=== PATIENT | female | born 1945 | race Caucasian/White ===

== ENCOUNTER 2021-03-19 14:55 | Emergency (ER) | payer MEDICARE ==
[~2021-03-19] VITALS: Ht 154.9 cm; Wt 81.0 kg
[2021-03-19] MEDS ORDERED: ONDANSETRON PF 4 MG/2 ML VIAL. IVP ONE (15:15)
[2021-03-19] MEDS ORDERED: IV NORMAL SALINE 1000ML BAG 1,000 ML IV SCH (15:15)
--- NOTE | 2021-03-19 15:31 | RAD ---
Single AP view of the chest. Comparison: None. Indication: Abdominal pain. Status post liver biopsy Findings: Retrocardiac hiatal hernia is identified. Coronary artery stents are identified. The heart is enlarge d. There is no pneumothorax or effusion. No air space or interstitial disease. Impression: 1. No acute cardiopulmonary process. Electronically signed by: Timmy Kwok MD (03/19/2021 3:28 PM) [facility]
[2021-03-19 16:00] LABS: BASO # 0.1 x10^3/uL (0.0-0.2); BASO % 0 % (0-3); EOS % 0 % (0-3); HEMATOCRIT 39.8 % (36.0-47.0); HEMOGLOBIN 13.3 g/dL (12.0-15.5); LYMPH # 1.2 x10^3/uL (1.0-4.8); LYMPH % 8 % (24-48); MEAN CORPUSCULAR HEMOGLOBIN 32 pg (25-35); MEAN CORPUSCULAR HGB CONC 33 g/dL (31-37); MEAN CORPUSCULAR VOLUME 95 fL (79-100); MONO # 0.4 x10^3/uL (0.0-1.1); MONO % 3 % (0-9); NEUT # 13.4 x10^3/uL (1.8-7.7); NEUT % 89 % (31-73); PLATELET COUNT 155 x10^3/uL (140-400); RED CELL DISTRIBUTION WIDTH 14.1 % (11.5-14.5); WHITE BLOOD COUNT 15.1 x10^3/uL (4.0-11.0)
[2021-03-19 16:06] LABS: CALCIUM 8.8 mg/dL (8.5-10.1); CREATININE 0.6 mg/dL (0.6-1.0); GFR 97.7; POTASSIUM 3.3 mmol/L (3.5-5.1)
[2021-03-19 16:07] LABS: PROTHROMBIN TIME PATIENT 12.8 SEC (11.7-14.0)
[2021-03-19 16:12] LABS: ALBUMIN 3.6 g/dL (3.4-5.0); DIRECT BILIRUBIN 0.2 mg/dL (0.0-0.2); TOTAL BILIRUBIN 0.7 mg/dL (0.2-1.0); TOTAL PROTEIN 7.9 g/dL (6.4-8.2)
[2021-03-19] MEDS ORDERED: IOHEXOL 240 MG/ML 50ML VIAL. PO ONE (16:15)
[2021-03-19] MEDS ORDERED: IOHEXOL 300 MG/ML 100ML VIAL. IV ONE (16:15)
[2021-03-19] MEDS ORDERED: CONTRAST GIVEN. MC PRN (16:15)
[2021-03-19 16:21] LABS: % BANDS 4 % (0-9); % LYMPHS 10 % (24-48); % MONOS 2 % (0-10); % SEGS 84 % (35-66); PLT ESTIMATE ADEQUATE (ADEQUATE)
--- NOTE | 2021-03-19 17:09 | RAD ---
Site ID: [id number] EXAMINATION: CT ABDOMEN+PELVIS W. Technique: Axial images with coronal and sagittal reconstructions are performed of abdomen and pelvis with intravenous contrast. 75 mL of Omnipaque -300 was administered intravenously. One or more of the following radiation dose reduction techniques was used: automated exposure control , adjustment of mA and/or KV according to patient size, and/or utilization of iterative reconstructio n technique. HISTORY: 75 years Female Reason: abd pain s/p liver biopsy COMPARISON: None. FINDINGS: There is a bilobed the subcapsular hematoma seen along the lower aspect of the liver measuring the 7 x 3.5 the CM in maximum axial dimension of the irregular from component of the hematoma. There is a n o definite evidence of a extravasation of contrast within the hematoma although the study is performe d with routine protocol contrast injection rates and timing. No obvious pseudoaneurysm or from vascul ar lesion. There is a very minimal amount of the peritoneal hematoma in the right paracolic gutter. The liver has slight lobulation in its contour which could relate to underlying chronic liver disease . The portal vein is patent. The gallbladder demonstrates no calcified stone or wall thickening or pe richolecystic fluid. The spleen is not enlarged. Adrenal glands appear unremarkable. Sections in the lower thorax demonstrate moderate to large hiatal hernia measuring the [address] dimension. The lung bases demonstrate minimal atelectasis. The kidneys have symmetric enhancement. There is slight prominence of the renal collecting system wit hout significant hydronephrosis. The urinary bladder appear unremarkable. There is extensive divertic ulosis. No diverticulitis. There is suggestion of a prior hysterectomy. Correlate to surgical history . There is no bowel obstruction and no dilated bowel loops seen. The abdominal aorta is normal in caliber. No para-aortic significantly enlarged lymph nodes seen. The osseous structures demonstrate advanced degenerative changes with multilevel posterior osteophyte s seen.. IMPRESSION: 1. There is a bilobed subcapsular hematoma along the lower aspect of the liver measuring 7 cm in grea test dimension. No definite extravasation of contrast is seen. There is a very small peritoneal hemat israel component along the right paracolic gutter. 2. Moderate to large hiatal hernia. 3. Diverticulosis. No diverticulitis. Critical result: Findings discussed by phone with Dr. Gaming at 03/19/2021 4:56 PM. RESULT CODE: (C) findings Electronically signed by: Joey Arreola MD (03/19/2021 5:06 PM) [id number]
[2021-03-19] MEDS ORDERED: HYDROmorphone 2 MG/ML VIAL IVP ONE (17:45)
--- NOTE | 2021-03-19 18:11 | EKG ---
[facility] [address] [place] [address] Test Date: 2021-03-19 Test Time: 17:37:38 Pat Name: AMARJIT KRAUSE Department: Room: Gender: F Transplant Rn: : 1945 Requested By: DEO KIMBLE Order Number: [id number] Reading MD: Measurements Intervals [place] Rate: 68 P: 52 GA: 184 QRS: 17 QRSD: 90 T: 19 QT: 418 QTc: 449 Interpretive Statements SINUS RHYTHM NORMAL ECG RI6.02 No previous ECG available for comparison
[2021-03-19 18:13] VITALS: BP 144/72
--- NOTE | 2021-03-19 19:00 | PHYS DOC ---
Past Medical History Past Surgical History: Other Additional Past Surgical Histo: biopsy Smoking Status: Never Smoker Alcohol Use: None General Adult EDM: Chief Complaint: ABDOMINAL PAIN HPI: HPI: 75-year-old female past medical history of CAD on aspirin 81 mg, hypertension hyperlipidemia, presents to the ED from [facility] with complains of right upper quadrant abdominal pain after liver biopsy that was performed earlier today. Patient states she was discharged around 11:00 this afternoon. Reports biopsy was performed due to chronically elevated transaminitis. Reports associated nausea due to the pain. States IR biopsy was performed by Dr. Smith at at 830 this morning. Was told not to lift more than 5 pounds ir exercise. Denies doing this, denies any falls or blunt abdominal trauma. Does report history of before oophorectomy with hemorrhage that required a blood transfusion in 1974, but has not required any blood transfusions since then. Review of Systems: Review of Systems: Constitutional: Denies fever or chills. [] Eyes: Denies change in visual acuity. [] HENT: Denies nasal congestion or sore throat. [] Respiratory: Denies cough or shortness of breath. [] Cardiovascular: Denies chest pain or edema. [] GI: Denies vomiting, bloody stools or diarrhea. [] : Denies dysuria or hematuria Musculoskeletal: Denies back pain or joint pain. [] Integument: Denies rash or diaphoresis Neurologic: Denies headache, focal weakness or sensory changes. [] Endocrine: Denies polyuria or polydipsia. [] Lymphatic: Denies swollen glands. [] Psychiatric: Denies depression or anxiety. [] Heart Score: C/O Chest Pain: No Risk Factors: Risk Factors: DM, Current or recent (<one month) smoker, HTN, HLP, family history of CAD, obesity. Risk Scores: Score 0 - 3: 2.5% MACE over next 6 weeks - Discharge Home Score 4 - 6: 20.3% MACE over next 6 weeks - Admit for Clinical Observation Score 7 - 10: 72.7% MACE over next 6 weeks - Early Invasive Strategies Current Medications: Current Medications Medications (Trade) Dose Ordered Sig/Bg Start Time Stop Time Status Last Admin Dose Admin Hydromorphone HCl (Dilaudid) 1 mg 1X ONCE 03/19/21 17:45 03/19/21 17:46 DC 03/19/21 17:52 1 MG Info (CONTRAST GIVEN -- Rx MONITORING) 1 each PRN DAILY PRN 03/19/21 16:15 03/21/21 16:14 Iohexol (Omnipaque 240 Mg/ml) 50 ml 1X ONCE 03/19/21 16:15 03/19/21 17:31 DC 03/19/21 16:34 50 ML Iohexol (Omnipaque 300 Mg/ml) 75 ml 1X ONCE 03/19/21 16:15 03/19/21 17:31 DC 03/19/21 16:33 75 ML Ondansetron HCl (Zofran) 4 mg 1X ONCE 03/19/21 15:15 03/19/21 17:31 DC 03/19/21 15:15 4 MG Sodium Chloride 1,000 ml @ 1,000 mls/hr Q1H 03/19/21 15:15 03/19/21 17:31 DC 03/19/21 15:15 1,000 MLS/HR Allergies: Allergies: Allergies Coded Allergies Type Severity Reaction Last Updated Verified meperidine Allergy Unknown 03/19/21 Yes nitrofurantoin Allergy Unknown 03/19/21 Yes Physical Exam: PE: Constitutional: Uncomfortable/brief episodes of pain (appears spasm-like), non- toxic appearance. HENT: Normocephalic, atraumatic, Eyes: EOMI, conjunctiva normal, no discharge. Neck: Normal range of motion, supple, Cardiovascular: S1/2 present, regular rhythm Lungs & Thorax: Speaking in full sentences, bilateral equal chest rise, no tachypnea or increased work of breathing Abdomen: soft, mildly distended with no erythema or rash over incision site, right upper quadrant tenderness present with no peritoneal signs Skin: Warm, dry, no erythema, no rash. [] Back: No tenderness, no CVA tenderness. [] Extremities: No tenderness, no cyanosis, Neurologic: Alert and oriented X 3, normal motor function, normal sensory function, no focal deficits noted. [] Psychologic: Affect normal, judgement normal, mood normal. [] Current Patient Data: Labs: Laboratory Tests Test 03/19/21 15:39 White Blood Count 15.1 x10^3/uL (4.0-11.0) H Red Blood Count 4.20 x10^6/uL (3.50-5.40) Hemoglobin 13.3 g/dL (12.0-15.5) Hematocrit 39.8 % (36.0-47.0) Mean Corpuscular Volume 95 fL (79-100) Mean Corpuscular Hemoglobin 32 pg (25-35) Mean Corpuscular Hemoglobin Concent 33 g/dL (31-37) Red Cell Distribution Width 14.1 % (11.5-14.5) Platelet Count 155 x10^3/uL (140-400) Neutrophils (%) (Auto) 89 % (31-73) H Lymphocytes (%) (Auto) 8 % (24-48) L Monocytes (%) (Auto) 3 % (0-9) Eosinophils (%) (Auto) 0 % (0-3) Basophils (%) (Auto) 0 % (0-3) Neutrophils # (Auto) 13.4 x10^3/uL (1.8-7.7) H Lymphocytes # (Auto) 1.2 x10^3/uL (1.0-4.8) Monocytes # (Auto) 0.4 x10^3/uL (0.0-1.1) Eosinophils # (Auto) 0.0 x10^3/uL (0.0-0.7) Basophils # (Auto) 0.1 x10^3/uL (0.0-0.2) Segmented Neutrophils % 84 % (35-66) H Band Neutrophils % 4 % (0-9) Lymphocytes % 10 % (24-48) L Monocytes % 2 % (0-10) Platelet Estimate Adequate (ADEQUATE) Prothrombin Time 12.8 SEC (11.7-14.0) Prothrombin Time INR 1.0 (0.8-1.1) Activated Partial Thromboplast Time 23 SEC (24-38) L Sodium Level 139 mmol/L (136-145) Potassium Level 3.3 mmol/L (3.5-5.1) L Chloride Level 101 mmol/L (98-107) Carbon Dioxide Level 26 mmol/L (21-32) Anion Gap 12 (6-14) Blood Urea Nitrogen 11 mg/dL (7-20) Creatinine 0.6 mg/dL (0.6-1.0) Estimated GFR (Cockcroft-Gault) 97.7 Glucose Level 121 mg/dL (70-99) H Calcium Level 8.8 mg/dL (8.5-10.1) Total Bilirubin 0.7 mg/dL (0.2-1.0) Direct Bilirubin 0.2 mg/dL (0.0-0.2) Aspartate Amino Transferase (AST) 66 U/L (15-37) H Alanine Aminotransferase (ALT) 91 U/L (14-59) H Alkaline Phosphatase 131 U/L (46-116) H Troponin I Quantitative < 0.017 ng/mL (0.000-0.055) Total Protein 7.9 g/dL (6.4-8.2) Albumin 3.6 g/dL (3.4-5.0) Lipase 98 U/L (73-393) Laboratory Tests 03/19/21 15:39 Laboratory Tests 03/19/21 15:39 Vital Signs: Vital Signs Date Time Temp Pulse Resp B/P (MAP) Pulse Ox O2 Delivery O2 Flow Rate FiO2 03/19/21 18:13 89 16 144/72 (96) 98 Room Air 03/19/21 15:01 98.1 98.1 EKG: EKG: [] Radiology/Procedures: Radiology/Procedures: IMAGING REPORT Signed PATIENT: AMARJIT KRAUSE ACCOUNT: [id number] : 1945 LOCATION: ER AGE: 75 SEX: F EXAM STATUS: PRE ER ORD. PHYSICIAN: DEO KIMBLE DO REASON: abd pain, n/v s/p liver biopsy PROCEDURE: PORTABLE CHEST 1V Single AP view of the chest. Comparison: None. Indication: Abdominal pain. Status post liver biopsy Findings: Retrocardiac hiatal hernia is identified. Coronary artery stents are identified. The heart is enlarged. There is no pneumothorax or effusion. No air space or interstitial disease. Impression: 1. No acute cardiopulmonary process. Electronically signed by: Timmy Kwok MD (03/19/2021 3:28 PM) [facility] DICTATED and SIGNED BY: TIMMY KWOK MD DATE: 03/19/21 [id number] IMAGING REPORT Signed PATIENT: AMARJIT KRAUSE ACCOUNT: [id number] : 1945 LOCATION: ER AGE: 75 SEX: F EXAM STATUS: PRE ER ORD. PHYSICIAN: DEO KIMBLE DO REASON: abd pain s/p liver biopsy PROCEDURE: CT ABD PELV W/ORAL&IV CONTRAST Site ID: [id number] EXAMINATION: CT ABDOMEN+PELVIS W. Technique: Axial images with coronal and sagittal reconstructions are performed of abdomen and pelvis with intravenous contrast. 75 mL of Omnipaque -300 was administered intravenously. One or more of the following radiation dose reduction techniques was used: automated exposure control, adjustment of mA and/or KV according to patient size, and/or utilization of iterative reconstruction technique. HISTORY: 75 years Female Reason: abd pain s/p liver biopsy COMPARISON: None. FINDINGS: There is a bilobed the subcapsular hematoma seen along the lower aspect of the liver measuring the 7 x 3.5 the CM in maximum axial dimension of the irregular from component of the hematoma. There is a no definite evidence of a extravasation of contrast within the hematoma although the study is performed with routine protocol contrast injection rates and timing. No obvious pseudoaneurysm or from vascular lesion. There is a very minimal amount of the peritoneal hematoma in the right paracolic gutter. The liver has slight lobulation in its contour which could relate to underlying chronic liver disease. The portal vein is patent. The gallbladder demonstrates no calcified stone or wall thickening or pericholecystic fluid. The spleen is not enlarged. Adrenal glands appear unremarkable. Sections in the lower thorax demonstrate moderate to large hiatal hernia measuring the 9 cm in greatest dimension. The lung bases demonstrate minimal atelectasis. The kidneys have symmetric enhancement. There is slight prominence of the renal collecting system without significant hydronephrosis. The urinary bladder appear unremarkable. There is extensive diverticulosis. No diverticulitis. There is suggestion of a prior hysterectomy. Correlate to surgical history. There is no bowel obstruction and no dilated bowel loops seen. The abdominal aorta is normal in caliber. No para-aortic significantly enlarged lymph nodes seen. The osseous structures demonstrate advanced degenerative changes with multilevel posterior osteophytes seen.. IMPRESSION: 1. There is a bilobed subcapsular hematoma along the lower aspect of the liver measuring 7 cm in greatest dimension. No definite extravasation of contrast is seen. There is a very small peritoneal hematoma component along the right paracolic gutter. 2. Moderate to large hiatal hernia. 3. Diverticulosis. No diverticulitis. Critical result: Findings discussed by phone with Dr. Kimble at 03/19/2021 4:56 PM. RESULT CODE: (C) findings Electronically signed by: Joey Arreola MD (03/19/2021 5:06 PM) [id number] Course & Med Decision Making: Course & Med Decision Making Pertinent Labs and Imaging studies reviewed. (See chart for details) Concern for liver hematoma status post IR biopsy today. Pt is hemodynamically stable with no thrombocytopenia or anemia. Patient with no tachycardia or hypotension. Labs are otherwise unremarkable. Patient with no peritoneal signs. Will transfer back to , who recommend considering CTA for extravasation if pain should worsen, if patient develops tachycardia or hemoglobin should drop. Repeat H&H pending. Patient agrees with this plan. I have spoken with the patient and/or caregivers. I have explained the patient's condition, diagnosis and treatment plan based on the information available to me at this time. I have answered the patient's and/or caregivers questions and answered any concerns. The patient and/or caregivers have as good an understanding of the patient's diagnosis, condition and treatment plan as can be expected at this point. The patient has been stabilized within the capability of the emergency department. The patient will be transported for further care and management or will be moved to an observation or inpatient service. I have communicated with the staff or medical practitioner taking over this patient's care. Elizabeth Disclaimer: Elizabeth Disclaimer: This electronic medical record was generated, in whole or in part, using a voice recognition dictation system. Departure Departure Impression: Primary Impression: Liver hematoma Additional Impressions: Right upper quadrant pain Elevated liver enzymes Disposition: 02 SHORT TERM [facility]OSPITAL (To [facility], accepted by Dr. Gray Cameron) Condition: GUARDED Referrals: SONIA GARCIAS (PCP) DEO KIMBLE DO Mar 19, 2021 19:00
[2021-03-19] MEDS ORDERED: ONDANSETRON PF 4 MG/2 ML VIAL. ONE (19:37)
[2021-03-19] MEDS ORDERED: ONDANSETRON PF 4 MG/2 ML VIAL. IM ONE (19:45)
[2021-03-19 19:50] LABS: HEMATOCRIT 38.2 % (36.0-47.0); HEMOGLOBIN 13.1 g/dL (12.0-15.5); RED BLOOD COUNT 4.06 x10^6/uL (3.50-5.40); RED CELL DISTRIBUTION WIDTH 14.1 % (11.5-14.5)
== END 2021-03-19 20:46 | disposition short-term general hospital (02) ==
LOC: ER 14:55
DX: S36.112A Contusion of liver, initial encounter (principal); R74.8 Abnormal levels of other serum enzymes; I10 Essential (primary) hypertension; I25.10 Atherosclerotic heart disease of native coronary artery without angina pectoris; X58.XXXA Exposure to other specified factors, initial encounter; Y93.89 Activity, other specified; Y92.89 Other specified places as the place of occurrence of the external cause; Y99.8 Other external cause status
CPT/HCPCS: 36415; 71045; 74177; 80048; 80076; 83690; 84484; 85007; 85025; 85027; 85610; 85730; 93005; 96361; 96372; 96374; 96375; 99285; J1170; J2405; J7030; Q9966; Q9967